=== PATIENT | male | born 1965 | race African-American/Black ===

== ENCOUNTER 2016-05-31 11:50 | Emergency (ER) | payer OTHER ==
[~2016-05-31] VITALS: Ht 180.3 cm; Wt 70.5 kg
[~2016-05-31 11:50] MED LIST: Z.0.NO CURRENT MEDS
[2016-05-31 11:52] VITALS: BP 203/98; PULSE 82; RESP 20; TEMP 98; O2SAT 98
[2016-05-31 13:03] VITALS: BP 167/81; PULSE 64
--- NOTE | 2016-05-31 13:17 | PD ---
HPI Chief Complaint: GI Complaint Time Seen by Provider: 13:15 Travel History International Travel<30 days: No Contact w/Intl Traveler<30days: No Traveled to known affect area: No History of Present Illness HPI 50-year-old male presents to the emergency department for evaluation of flareups of his hemorrhoids that started on Wednesday, 4 days ago. He reports increased pain, swelling to his hemorrhoids. Patient states he typically can get the pain resolved on his own, but this time is more severe than normal. The patient states he has tried [id number] cream without improvement. Patient was no chronic medical problems and takes no prescribed medications. He states he has had hemorrhoids for over 20 years. He denies any other complaints at this time. [facility] Social History Alcohol Use: Yes Tobacco Use: Yes Substance Use: No Allergies-Medications (Allergen,Severity, Reaction): Coded Allergies: No Known Allergies (Unverified , 05/31/16) Reported Meds & Prescriptions Reported Meds & Active Scripts Active No Active Prescriptions or Reported Medications Review of Systems Except as stated in HPI: all other systems reviewed are Neg Physical Exam Narrative GENERAL: Well-developed well-nourished male patient, ambulatory. Afebrile. SKIN: Warm and dry. HEAD: Normocephalic. Atraumatic. EYES: No scleral icterus. No injection or drainage. NECK: Supple, trachea midline. No JVD or lymphadenopathy. CARDIOVASCULAR: Regular rate and rhythm without murmurs, gallops, or rubs. RESPIRATORY: Breath sounds equal bilaterally. No accessory muscle use. Lungs sounds are clear to auscultation. GASTROINTESTINAL: Abdomen soft, non-tender, nondistended. MUSCULOSKELETAL: No cyanosis, or edema. BACK: Nontender without obvious deformity. No CVA tenderness. RECTAL EXAM: Patient has large external hemorrhoid noted to the 6 o'clock position. This is tender to palpation. No erythema or warmth. No evidence of thrombosed hemorrhoid. This exam was done with ROB Chung at bedside. Data Data Last Documented VS Vital Signs Date Time Temp Pulse Resp B/P Pulse Ox O2 Delivery O2 Flow Rate FiO2 05/31/16 13:03 64 167/81 05/31/16 11:52 98.0 20 98 Room Air MDM Medical Decision Making Medical Screen Exam Complete: Yes Emergency Medical Condition: Yes Differential Diagnosis External hemorrhoids versus internal hemorrhoids versus inflammation Narrative Course 50-year-old male presents to the emergency department for evaluation of flareup of his hemorrhoids that started on Wednesday. He has no other complaints at this time. Physical exam reveals external hemorrhoid. Patient will be discharged prescription for Proctofoam and hydrocortisone suppositories. He is instructed to follow-up with a colorectal surgeon. He is to return for any acute worsening of symptoms. The patient was discharged in stable condition with instructions, including return instructions and follow up instructions. Diagnosis Primary Impression: External hemorrhoid Referrals: Erin Cabezas MD call for appointment Patient Instructions: General Instructions Additional Instructions: Sitz baths. Use Proctofoam as directed as needed. Use hydrocortisone suppositories as directed as needed. Follow up with a colorectal surgeon. I included the name of our colorectal surgeon on-call today. Return to the emergency department for any acute worsening of symptoms. Med/Other Pt SpecificInfo: Prescription(s) given Scripts Hydrocortisone Acetate Supp 25 Mg Supp25 Mg RECTAL BID 5 Days Ref 0 Prov:Sophia Granda 05/31/16 Hydrocortisone-Pramoxine Rectal (Proctofoam Hc Rectal)1-1% Foam1 Applic RECTAL Q8H PRN (ITCHING/INFLAMMATION) #1 CAN Ref 0 Prov:Sophia Granda 05/31/16 Disposition: 01 DISCHARGE HOME Condition: Stable Sophia Granda May 31, 2016 13:17
[2016-05-31] MEDS ORDERED: PROCHCT RECTAL (13:27)
[2016-05-31] MEDS ORDERED: HYDR39SU2 RECTAL (13:27)
== END 2016-05-31 13:36 | disposition home or self-care (01) ==
LOC: NEPB 11:50
DX: K64.4 Residual hemorrhoidal skin tags (principal)
CPT/HCPCS: 99282